=== PATIENT | male | born 1995 | race American Indian/Alaskan Native ===

== ENCOUNTER 2017-02-24 05:03 | Emergency (ER) | payer SELFPAY ==
[2017-02-24 05:14] VITALS: TEMP 97.8
--- NOTE | 2017-02-24 05:35 | C.PDOC ---
History Of Present Illness 21 year old male who presents to the ER via EMS with a complaint of lower left rib pain, chest tightness that radiated to the throat after smoking marijuana tonight. He reports symptoms lastedf few minutes. Patient states upon arrival of EMS all his symptoms were resolved. Patient denies any physical complaints at this time. No SOB. Time Seen by Provider: 02/24/17 05:21 Chief Complaint (Nursing): Substance Abuse History Per: Patient History/Exam Limitations: no limitations Onset/Duration Of Symptoms: Mins Current Symptoms Are (Timing): Gone Suicide/Self Injury Attempted (Context): None Modifying Factor(s): Marijuana Associated Symptoms: denies: Depression, Suicidal Thoughts, Suicidal Plan Recent travel outside of the [place]: No Past Medical History Reviewed: Historical Data, Nursing Documentation, Vital Signs Vital Signs: Last Vital Signs Temp 97.8 F 02/24/17 05:10 Pulse 62 02/24/17 05:51 Resp 18 02/24/17 05:51 BP 142/82 02/24/17 05:51 Pulse Ox 99 02/24/17 05:51 - Medical History PMH: No Chronic Diseases Surgical History: No Surg Hx Family History: States: Unknown Family Hx - Social History Hx Tobacco Use: Yes Hx Alcohol Use: Yes Hx Substance Use: Yes (cannabis) - Immunization History Hx Tetanus Toxoid Vaccination: No Hx Influenza Vaccination: No Hx Pneumococcal Vaccination: No Review Of Systems Constitutional: Negative for: Fever, Chills ENT: Positive for: Throat Pain. Negative for: Throat Swelling Cardiovascular: Negative for: Chest Pain, Palpitations Respiratory: Negative for: Cough, Shortness of Breath Gastrointestinal: Negative for: Nausea, Vomiting Musculoskeletal: Negative for: Back Pain Skin: Negative for: Rash Neurological: Negative for: Weakness, Numbness, Headache, Dizziness Psych: Positive for: Anxiety Physical Exam - Physical Exam Appears: Non-toxic, No Acute Distress Skin: Normal Color, Warm, Dry Head: Atraumatic, Normacephalic Eye(s): bilateral: Normal Inspection, EOMI, Other (conjunctival injection) Nose: Normal Oral Mucosa: Moist Throat: Normal, No Erythema, No Exudate Neck: Normal ROM Chest: Symmetrical, No Tenderness Cardiovascular: Rhythm Regular, No Murmur Respiratory: Normal Breath Sounds, No Accessory Muscle Use, No Wheezing Gastrointestinal/Abdominal: Soft Extremity: Bilateral: Atraumatic, Normal Color And Temperature, Normal ROM Neurological/Psych: Oriented x3, Normal Speech Gait: Steady ED Course And Treatment O2 Sat by Pulse Oximetry: 97 (Room air) Pulse Ox Interpretation: Normal Medical Decision Making Medical Decision Making: Patient with complaints of chest tightness and throat pain after smoking marijuana lasting few minutes. Symptoms resolved upon arrival to ED. Patinet apppears well nontoxic in no distress. Lungs CTA B/L and RRR, Vitals stable. symptoms likely related to cannabis use and anxiety. Advise patient on drug use and effects. Patient is asking for dsicharge. Patient advised to follow up with PMD for further evaluation and to return to ER if symptoms worsen. Disposition Counseled Patient/Family Regarding: Studies Performed, Diagnosis, Need For Followup - Disposition Referrals: [facility] [Outside] [facility] [Outside] [facility] [Outside] Disposition: HOME/ ROUTINE Disposition Time: 05:50 Condition: STABLE Additional Instructions: Follow up with the clinic in 2-5 days for further evaluation. Return to the emergency department at any time if symptoms persist or worsen. Instructions: Cannabis Abuse (ED) Forms: [facility] (Welsh) - POA Present On Arrival: None - Clinical Impression Clinical Impression: Cannabis use disorder, mild, abuse, Drug-induced anxiety disorder - Scribe Statement The provider has reviewed the documentation as recorded by the Scriblavern Sanchez All medical record entries made by the Scribe were at my direction and personally dictated by me. I have reviewed the chart and agree that the record accurately reflects my personal performance of the history, physical exam, medical decision making, and the department course for this patient. I have also personally directed, reviewed, and agree with the discharge instructions and disposition.
[2017-02-24 05:53] VITALS: BP 142/82; PULSE 62; RESP 18
[2017-02-24 05:59] VITALS: O2SAT 97
== END 2017-02-24 05:53 | disposition home or self-care (01) ==
LOC: C.ER 05:03
DX: F12.180 Cannabis abuse with cannabis-induced anxiety disorder (principal)